=== PATIENT | male | born 1975 | race Caucasian/White ===

== ENCOUNTER 2023-01-27 20:09 | Outpatient (CLI) | payer OTHER, SELFPAY | END 2023-01-27 20:10 | disposition home or self-care (01) | PROVIDERS: Visit Provider Internal Medicine | DX: E16.2 Hypoglycemia, unspecified (principal); S39.92XA Unspecified injury of lower back, initial encounter; V48.0XXA Car driver injured in noncollision transport accident in nontraffic accident, initial encounter; Y92.488 Other paved roadways as the place of occurrence of the external cause | CPT/HCPCS: A0425; A0427 ==